=== PATIENT | male | born 1995 | race Caucasian/White ===

== ENCOUNTER 2017-10-21 06:06 | Emergency (ER) | payer MEDICAID, OTHER ==
[2017-10-21] MEDS ORDERED: MOTRIN PO ONE (07:59)
--- NOTE | 2017-10-21 08:02 | Emergency Department Report ---
Upper Extremity - HPI Chief Complaint: Extremity Injury, Upper Stated Complaint: LT WRIST PAIN Time Seen by Provider: 10/21/17 07:42 Upper Extremity: Left Forearm (pain after injury), Left Wrist (pain after injury ), Left Hand (pain after injury) Mechanism: Hit with Object (hit with a soccer ball) Severity: severe (10/10) Symptoms: Yes Pain with Movement (left wrist), No Deformity, No Limited Range of Movement (normal range of motion but pain with movement of left wrist), No Numbness, No Weakness, No Swelling, No Bruising/Ecchymosis, No Laceration or Abrasion Other History: This is a 21-year-old male who reports 4 days ago he was playing soccer and he injured his left hand wrist and forearm because soccer ball hit him. He said that he is impetiginized on it but is just still painful when he moves his left wrist. Denies any fever or chills. Denies swelling or redness. Denies any numbness or tingling. Pain is worse with movement and better with rest. ED Review of Systems ROS: Stated complaint: LT WRIST PAIN Other details as noted in HPI Constitutional: denies: chills, fever Eyes: denies: eye pain, eye discharge, vision change Respiratory: denies: cough, shortness of breath, wheezing Cardiovascular: denies: chest pain, palpitations, edema, syncope Gastrointestinal: denies: nausea, vomiting Musculoskeletal: arthralgia. denies: back pain, joint swelling, myalgia Skin: denies: rash, lesions Neurological: denies: headache, weakness, numbness, paresthesias, abnormal gait , vertigo ED Past Medical Hx - Past Medical History Previous Medical History?: No - Surgical History Past Surgical History?: No - Family History Family history: hypertension - Social History Smoking Status: Current Every Day Smoker Substance Use Type: None - Medications Home Medications: Home Medications Medication Instructions Recorded Confirmed Last Taken Type Acetaminophen/Codeine [Tylenol #3] 1 tab PO Q6H PRN #15 tab 05/01/13 Unknown Rx Ibuprofen [Motrin] 600 mg PO Q8H PRN #15 tablet 10/21/17 Unknown Rx Upper Extremity Exam - Exam General: Vital signs noted. No distress. Alert and acting appropriately. This is a 21-year-old male well-nourished well-developed in no acute distress. Head and Torso: No HEENT Abnormality, No Neck Tenderness, No Chest/Lungs Abnormality, No Abdominal Tenderness, No Back Tenderness Shoulder Exam: No Shoulder Tenderness, No Clavicle Tenderness, No Shoulder Deformity, No AC Joint Tenderness Arm Exam: No Arm/Humerus Tenderness, No Arm Deformity Elbow: No Elbow Tenderness, No Normal Range of Motion in Elbow, No Elbow Deformity Forearm: No Forearm Tenderness, No Forearm Deformity, No Pain with Pronation, No Pain with Supination Wrist: Yes Wrist Tenderness (mild tenderness to the left wrist), Yes Normal ROM in Wrist (pain movement of the left wrist), No Wrist Deformity, No Snuffbox Tenderness, No Pain with Axial Thumb Compression Hand: Yes Normal ROM in Digit(s) (full range of motion.), No Hand Tenderness, No Hand Deformity, No Digit Tenderness, No Digit(s) Deformity, No Tendon Dysfunction CMS Exam: Yes Normal Distal Pulses, Yes Normal Capillary Refill, Yes Normal Distal Sensation (`), No Broken Skin ED Course Vital Signs 10/21/17 06:29 Temperature 97.7 F Pulse Rate 51 L Respiratory 14 Rate Blood Pressure 108/58 O2 Sat by Pulse 100 Oximetry - Reevaluation(s) Reevaluation #1: 10/21/17 08:49 Patient given Motrin 800 mg in emergency room for left wrist pain. Reevaluation #2: 10/21/17 09:04 Patient reports pain is better - Orthopedic Splinting/Casting Injury #1 Side: left Upper Extremity Injury Location: wrist Upper Extremity Immobilizer: wrist splint Additional Comments: Patient with good color, sensation, movement and temperature 2 fingers of left hand after placement of splint. +2 pulses and then ulnar and radial plate. ED Medical Decision Making - Radiology Data Radiology results: report reviewed X-ray of left wrist reveals normal findings X-ray of left hand reveals normal findings X-ray of left forearm reveals normal findings. Findings [facility] [address] [place] [address] Ordering Physician: DELFINO BORREGO MD Date of Service: 10/21/17 Procedure(s): XR hand 2V LT Accession Number(s): [id number] cc: DELFINO BORREGO MD Fluoro Time In Minutes: FINAL REPORT EXAM: XR HAND 2V LT HISTORY: left thumb pain TECHNIQUE: AP and lateral views of the left hand were obtained. FINDINGS: There are no skeletal or soft tissue abnormalities. IMPRESSION: Within normal limits. Transcribed By: RB Dictated By: ABBI RODRIGUEZ MD Electronically Authenticated By: ABBI RODRIGUEZ MD Signed Date/Time: 10/21/17705 Findings [facility] [address] [place] [address] XRay Report Signed Patient: HELIO MCELROY MR#: [id number] : 1995 Acct:[id number] Age/Sex: 21 / M ADM Date: 10/21/17 Loc: ED Attending Dr: Ordering Physician: DELFINO BORREGO MD Date of Service: 10/21/17 Procedure(s): XR forearm 1V LT Accession Number(s): [id number] cc: DELFINO BORREGO MD Fluoro Time In Minutes: FINAL REPORT EXAM: XR FOREARM 1V LT HISTORY: Left forearm pain TECHNIQUE: A single AP view of the left forearm was submitted FINDINGS: There are no skeletal or soft tissue abnormalities. IMPRESSION: Within normal limits. Transcribed By: RB Dictated By: ABBI RODRIGUEZ MD Electronically Authenticated By: ABBI RODRIGUEZ MD Signed Date/Time: 10/21/17705 DD/ 5 TD/TT: 10/21/17705 - Medical Decision Making ED course: Patient here for left hand, wrist and forearm pain 4 days of pain soccer. He said he has been icing it and he is here to be seen and evaluated. Patient seen and evaluated by myself and found to have left wrist sprain. X- ray of left wrist, forearm and hand reveal no acute fracture or dislocation. He was given Motrin 800 mg emergency room which helped his pain. I educated him on x-ray results of the voiced understanding of results. A/P 1: Left wrist sprain-left wrist Velcro splint placed., Rice therapy explained, patient and given 2: Left wrist pain-Motrin 800 mg emergency room which helped his pain better and we'll discharge home and Motrin X-ray of left wrist, forearm and hand reveal no acute findings. Patient given prescription for Motrin upon discharge and he was placed in left wrist splint. See procedure note for details Educated on splint, Rice therapy, medication and diagnosis and he voiced understanding. Pt discharged home in stable condition to follow up with orthopedic doctor if he continues to have pain. Vital signs are stable afebrile and he voiced understanding the discharge instructions - Differential Diagnosis fractured wrist, wrist sprain, wrist strain, musculoskeletal pain Critical care attestation.: If time is entered above; I have spent that time in minutes in the direct care of this critically ill patient, excluding procedure time. ED Disposition Clinical Impression: Left wrist pain Left wrist sprain Qualifiers: Encounter type: initial encounter Qualified Code(s): S63.502A - Unspecified sprain of left wrist, initial encounter Disposition: TO HOME OR SELFCARE Is pt being admited?: No Does the pt Need Aspirin: No Condition: Stable Instructions: Arthralgia (ED), Wrist Injury (ED), Wrist Sprain (ED), RICE Therapy (ED) Additional Instructions: Please see discharge instruction in Rice therapy Take Motrin as prescribed [facility] orthopedic doctor if she still continued pain over the next 3 days. Prescriptions: Ibuprofen [Motrin] 600 mg PO Q8H PRN #15 tablet PRN Reason: Pain Referrals: PRIMARY MD IAN [Primary Care Provider] - 10/24/17 ABBI FALK MD [Staff Physician] - 10/24/17 Forms: Work/School Release Form(ED)
--- NOTE | 2017-10-21 08:53 | XRay Report ---
FINAL REPORT EXAM: XR HAND 2V LT HISTORY: left thumb pain TECHNIQUE: AP and lateral views of the left hand were obtained. FINDINGS: There are no skeletal or soft tissue abnormalities. IMPRESSION: Within normal limits.
--- NOTE | 2017-10-21 08:53 | XRay Report ---
FINAL REPORT EXAM: XR WRIST 2V LT HISTORY: Left wrist pain TECHNIQUE: AP and lateral views of the left wrist were submitted. FINDINGS: There is no evidence of fracture or arthritic changes. The radiocarpal alignment appears normal. The soft tissues are well maintained. IMPRESSION: Within normal limits. If there is a history of recent trauma and persistent pain, repeat imaging is recommended in 7-10 days to evaluate for occult fracture.
--- NOTE | 2017-10-21 08:53 | XRay Report ---
FINAL REPORT EXAM: XR FOREARM 1V LT HISTORY: Left forearm pain TECHNIQUE: A single AP view of the left forearm was submitted FINDINGS: There are no skeletal or soft tissue abnormalities. IMPRESSION: Within normal limits.
[2017-10-21 09:36] VITALS: BP 116/60
== END 2017-10-21 09:46 | disposition home or self-care (01) ==
LOC: ED 06:06
DX: S63.502A Unspecified sprain of left wrist, initial encounter (principal); M79.632 Pain in left forearm; F17.200 Nicotine dependence, unspecified, uncomplicated; W21.02XA Struck by soccer ball, initial encounter; Y93.66 Activity, soccer; Y99.8 Other external cause status; Y92.89 Other specified places as the place of occurrence of the external cause

== ENCOUNTER 2017-12-13 02:40 | Emergency (ER) | payer OTHER ==
[2017-12-13] MEDS ORDERED: MOTRIN ONE ×2 (03:54→08:19)
--- NOTE | 2017-12-13 05:03 | XRay Report ---
FINAL REPORT PROCEDURE: XR WRIST 2V LT TECHNIQUE: LEFT wrist radiographs, including AP, lateral, and oblique views. CPT 30120 HISTORY: left wrist pain COMPARISON: No prior studies are available for comparison. FINDINGS: Fracture (s) and/or Dislocation(s): There is a fracture of the proximal portion of the scaphoid bone.. Alignment: Normal . Joint space(s): Normal . Soft tissues: Normal . Bone mineralization: Normal . Foreign bodies: None . IMPRESSION: Fracture of the scaphoid carpal bone. There is no joint dislocation..
--- NOTE | 2017-12-13 05:06 | XRay Report ---
FINAL REPORT PROCEDURE: XR KNEE 3V LT TECHNIQUE: LEFT knee radiographs, AP, lateral and sunrise views. CPT 47526 HISTORY: Left knee pain COMPARISON: No prior studies are available for comparison. FINDINGS: Fracture (s) and/or Dislocation(s): None . Alignment: Normal . Joint space(s): Normal . Soft tissues: Normal . Bone mineralization: Normal . Foreign bodies: None . IMPRESSION: Normal Examination.
[2017-12-13] MEDS ORDERED: MOTRIN PO ONE ×2 (06:01→08:30)
--- NOTE | 2017-12-13 08:24 | Emergency Department Report ---
ED Lower Extremity HPI - General Chief Complaint: Extremity Injury, Upper Stated Complaint: ARM PAIN, KNEE Time Seen by Provider: 12/13/17 08:08 Source: patient Mode of arrival: Ambulatory Limitations: No Limitations - History of Present Illness Initial Comments: This is a 22-year-old male nontoxic, well nourished in appearance, no acute signs of distress presents to the ED with c/o of left knee pain 1 day and right wrist pain x1 month. Patient stated that he has been walking a lot yesterday and developed knee pain. Patient denies any trauma. Patient stated he had a baseball injury to his left wrist area last month and came to the ER and was diagnosed with a wrist sprain and had a negative x-ray results of any fractures. Patient stated that he does follow-up with the orthopedic doctor for pain. Patient stated that pain has never resolved. Patient denies any numbness, tingling, fever, chills, nausea, vomiting, chest pain, shortness of breath, headache, stiff neck. Patient denies any joint swelling or joint redness. Patient denies decreased range of motion. Patient stated has decreased gait due to pain. Patient denies any allergies or significant past medical history. MD Complaint: knee injury, other (left wrist pain) -: days(s) Injury: Knee: Left Place: street/outdoors Severity: mild Severity scale (0 -10): 8 Improves With: immobilization Worsens With: weight bearing, movement Associated Symptoms: able to partially bear weight, ambulatory. denies: snap/ pop sensation, swelling, numbness, tingling, unable to bear weight - Related Data Previous Rx's Medication Instructions Recorded Last Taken Type Acetaminophen/Codeine [Tylenol #3] 1 tab PO Q6H PRN #15 tab 05/01/13 Unknown Rx Ibuprofen [Motrin] 600 mg PO Q8H PRN #15 tablet 10/21/17 Unknown Rx Acetaminophen/Codeine [Tylenol 1 tab PO Q6H PRN #12 tab 12/13/17 Unknown Rx /Codeine # 3 tab] Ibuprofen [Motrin] 600 mg PO Q8H PRN #30 tablet 12/13/17 Unknown Rx Allergies Allergy/AdvReac Type Severity Reaction Status Date / Time No Known Allergies Allergy Unverified 05/01/13 12:44 ED Review of Systems ROS: Stated complaint: ARM PAIN, KNEE Other details as noted in HPI Constitutional: denies: chills, fever Eyes: denies: eye pain, eye discharge, vision change ENT: denies: ear pain, throat pain Respiratory: denies: cough, shortness of breath, wheezing Cardiovascular: denies: chest pain, palpitations Endocrine: no symptoms reported Gastrointestinal: denies: abdominal pain, nausea, diarrhea Genitourinary: denies: urgency, dysuria Musculoskeletal: denies: back pain, joint swelling, arthralgia Skin: denies: rash, lesions Neurological: denies: headache, weakness, paresthesias Psychiatric: denies: anxiety, depression Hematological/Lymphatic: denies: easy bleeding, easy bruising ED Past Medical Hx - Past Medical History Previous Medical History?: No - Surgical History Past Surgical History?: No - Social History Smoking Status: Current Every Day Smoker Substance Use Type: None - Medications Home Medications: Home Medications Medication Instructions Recorded Confirmed Last Taken Type Acetaminophen/Codeine [Tylenol #3] 1 tab PO Q6H PRN #15 tab 05/01/13 Unknown Rx Ibuprofen [Motrin] 600 mg PO Q8H PRN #15 tablet 10/21/17 Unknown Rx Acetaminophen/Codeine [Tylenol 1 tab PO Q6H PRN #12 tab 12/13/17 Unknown Rx /Codeine # 3 tab] Ibuprofen [Motrin] 600 mg PO Q8H PRN #30 tablet 12/13/17 Unknown Rx ED Physical Exam - General Limitations: No Limitations General appearance: alert, in no apparent distress - Head Head exam: Present: atraumatic, normocephalic - Eye Eye exam: Present: normal appearance - ENT ENT exam: Present: mucous membranes moist - Neck Neck exam: Present: normal inspection - Respiratory Respiratory exam: Present: normal lung sounds bilaterally. Absent: respiratory distress - Cardiovascular Cardiovascular Exam: Present: regular rate, normal rhythm. Absent: systolic murmur, diastolic murmur, rubs, gallop - GI/Abdominal GI/Abdominal exam: Present: soft, normal bowel sounds - Rectal Rectal exam: Present: deferred - Extremities Exam Extremities exam: Present: normal inspection, full ROM, tenderness, normal capillary refill. Absent: joint swelling - Expanded Upper Extremity Exam Left Elbow exam: Present: normal inspection, full ROM. Absent: tenderness, swelling Forearm Wrist exam: Present: normal inspection, full ROM. Absent: tenderness, swelling, abrasion, laceration, ecchymosis, deformity, crepidus, dislocation, erythema, tenderness over anatomical snuff box, pain with axial thumb loading Hand Wrist exam: Present: normal inspection, full ROM, tenderness. Absent: swelling, abrasion, laceration, ecchymosis, deformity, crepidus, dislocation, erythema, amputation, nail avulsion, subungual hematoma Hand L/R Back: 1 - pain here Neuro motor exam: Present: wrist extension intact, thumb opposition intact, thumb IP flexion intact, thumb adduction intact, fingers 2-5 abduction intact Neurosensory exam: Present: 2-point discrimination, radial nerve intact, ulnar nerve intact, median nerve intact Vascular: Present: vascular compromise, normal capillary refill, radial pulse, brachial pulse, ulnar pulse - Expanded Lower Extremity Exam Left Upper Leg exam: Present: normal inspection, full ROM. Absent: tenderness, swelling Knee exam: Present: normal inspection, full ROM, tenderness, full knee extension. Absent: swelling, abrasion, laceration, ecchymosis, deformity, crepidus, dislocation, erythema, effusion, pain w/ pronation/supination, posterior draw sign, pain/laxity with valgus, pain/laxity with varus Lower Leg exam: Present: normal inspection, full ROM. Absent: tenderness, swelling, abrasion, laceration, ecchymosis, deformity, crepidus, dislocation, erythema, palpable cord, Williams's sign Ankle exam: Present: normal inspection, full ROM. Absent: tenderness, swelling Foot/Toe exam: Present: normal inspection, full ROM. Absent: tenderness, swelling Neuro vascular tendon exam: Present: no vascular compromise. Absent: pulse deficit, abnormal cap refill, motor deficit, sensory deficit, tendon deficit, extremity cold to touch, pallor, abnormal 2-point discrimination, decreased fine /light touch, foot drop, peroneal nerve deficit, significant pain with passive ROM of distal joint Gait: Positive: observed and limited by pain - Back Exam Back exam: Present: normal inspection, full ROM - Neurological Exam Neurological exam: Present: alert, oriented X3 - Psychiatric Psychiatric exam: Present: normal affect, normal mood - Skin Skin exam: Present: warm, dry, intact, normal color. Absent: rash ED Course Vital Signs 12/13/17 03:21 Temperature 98.1 F Pulse Rate 50 L Respiratory 16 Rate Blood Pressure 110/61 O2 Sat by Pulse 99 Oximetry - Reevaluation(s) Reevaluation #1: 12/13/17 08:45 Patient is speaking in full sentences with no signs of distress noted. Reevaluation #2: 12/13/17 08:45 Post splint assessment: neurovasular intact; normal cap refill <2 second; normal sensation; denies decreaed sensation; normal ROM of digits. ED Lower Extremity MDM - Medical Decision Making This is a 22-year-old male that presents with left knee strain and left scaphoid bone fracture. Patient is stable and was examined by me. I referred patient to an orthopedic doctor for further evaluation for possible MRI. X-ray has been obtained and dictated by the radiologist. Patient is notified of the x -ray report with noted by the patient. Patient does have normal gait with no tenderness and no joint swelling. No ecchymosis. no joint redness or swelling. Not warm to touch. No signs of cellulites present. Patient received a knee Casa wrap and left thumb spica Velcro splint. Post splint assessment: neurovasular intact; normal cap refill <2 second; normal sensation; denies decreaed sensation ; normal ROM of digits. Patient was instructed to RICE therapy. Patient received Motrin for pain. Patient is discharged with Motrin. At time of discharge, the patient does not seem toxic or ill in appearance. No acute signs of distress noted. Patient agrees to discharge treatment plan of care. No further questions noted by the patient. Critical care attestation.: If time is entered above; I have spent that time in minutes in the direct care of this critically ill patient, excluding procedure time. ED Disposition Clinical Impression: Strain of left knee Qualifiers: Encounter type: initial encounter Qualified Code(s): S86.912A - Strain of unspecified muscle(s) and tendon(s) at lower leg level, left leg, initial encounter Left wrist fracture Qualifiers: Encounter type: initial encounter Fracture type: closed Qualified Code(s): S62.102A - Fracture of unspecified carpal bone, left wrist, initial encounter for closed fracture Disposition: DC-01 TO HOME OR SELFCARE Is pt being admited?: No Does the pt Need Aspirin: No Condition: Stable Instructions: Knee Pain (ED), RICE Therapy (ED), Wrist Fracture in Adults (ED) , Ibuprofen (By mouth), Acetaminophen/Codeine (By mouth) Additional Instructions: Follow-up with a orthopedic doctor in 3-5 days or if symptoms worsen and continue return to emergency room as soon as possible. Do not operate any machinery while taking Tylenol with codeine as this may cause drowsiness. Prescriptions: Acetaminophen/Codeine [Tylenol /Codeine # 3 tab] 1 tab PO Q6H PRN #12 tab PRN Reason: Pain , Severe (7-10) Ibuprofen [Motrin] 600 mg PO Q8H PRN #30 tablet PRN Reason: Pain Referrals: PRIMARY CAREMD [Primary Care Provider] - 3-5 Days ABBI FALK MD [Staff Physician] - 3-5 Days HARMAN SMITH MD [Staff Physician] - 3-5 Days [facility] [Outside] - 3-5 Days Forms: Work/School Release Form(ED)
[2017-12-13 09:01] VITALS: BP 118/70
== END 2017-12-13 08:59 | disposition home or self-care (01) ==
LOC: ED 02:40
DX: S62.102A Fracture of unspecified carpal bone, left wrist, initial encounter for closed fracture (principal); S86.912A Strain of unspecified muscle(s) and tendon(s) at lower leg level, left leg, initial encounter; F17.200 Nicotine dependence, unspecified, uncomplicated; W21.03XA Struck by baseball, initial encounter; Y93.64 Activity, baseball; Y92.39 Other specified sports and athletic area as the place of occurrence of the external cause; Y99.8 Other external cause status

== ENCOUNTER 2018-08-29 08:47 | Emergency (ER) | payer SELFPAY ==
--- NOTE | 2018-08-29 09:33 | Emergency Department Report ---
Vomiting/Diarrhea - HPI Chief Complaint: Nausea/Vomiting/Diarrhea Stated Complaint: VOMITING/BODY PAIN/CHEST PAIN Time Seen by Provider: 08/29/18 09:24 Duration: 2 weeks Severity: mild Nausea/Vomiting Severity: Mild Diarrhea Severity: None Pain Severity: None Symptoms: Yes Able to Tolerate Fluids, No Watery Diarrhea, No Bloody diarrhea, No Fever, No Recent Unusual Foods, No Recent Untreated Water, No Recent use of Antibiotics, No Family w/ Similar Symptoms, No Contacts w/ Similar Symptoms, No Rash, No Hematuria, No Recent URI Symptoms Other History: This is a 22-year-old male who presents to ED complaining of nausea and vomiting that happens every morning for the past 2 weeks or more. Patient states that it usually occurs every morning. Patient states after he throws up than he feels a little better. Patient states that he is able to eat normally throughout the day and drink fluids. He denies diarrhea Patient states that he has no fever, abdominal pain, dizziness, ED Review of Systems ROS: Stated complaint: VOMITING/BODY PAIN/CHEST PAIN Other details as noted in HPI Comment: All other systems reviewed and negative ED Past Medical Hx - Past Medical History Previous Medical History?: No - Surgical History Past Surgical History?: No - Social History Smoking Status: Current Every Day Smoker Substance Use Type: None - Medications Home Medications: Home Medications Medication Instructions Recorded Confirmed Last Taken Type Acetaminophen/Codeine [Tylenol #3] 1 tab PO Q6H PRN #15 tab 05/01/13 Unknown Rx Ibuprofen [Motrin] 600 mg PO Q8H PRN #15 tablet 10/21/17 Unknown Rx Acetaminophen/Codeine [Tylenol 1 tab PO Q6H PRN #12 tab 12/13/17 Unknown Rx /Codeine # 3 tab] Ibuprofen [Motrin] 600 mg PO Q8H PRN #30 tablet 12/13/17 Unknown Rx Ondansetron [Zofran ODT TAB] 8 mg PO Q12HR #20 tab.rapdis 08/29/18 Unknown Rx Vomiting Diarrhea Exam - Exam General: Vital signs noted. No distress. Alert and acting appropriately. HEENT: Yes Moist Mucous Membranes, No Pharyngeal Erythema, No Pharyngeal Exudates, No Rhinorrhea, No Conjuctival Injection, No Frontal Tenderness, No Maxillary Tenderness Neck: No Adenopathy, No Rigidity Lungs: Yes Clear Lung Sounds, Yes Good Air Exchange, No Wheezes, No Stridor, No Cough, No Nasal Flaring, No Retractions, No Use of Accessory Muscles Heart exam: Regular: Yes, Murmur: No, Tachycardia: No Abdomen: Tenderness: No (no tenderness on all quadrant), Peritoneal Signs: No, Distention: No, Hyperactive Bowel sounds: No Skin exam: Rash: No, Edema: No, Normal turgor: Yes Neurologic: Alert and oriented, no deficits. Musculoskeletal: Unremarkable. ED Course Vital Signs 08/29/18 08:49 Temperature 97.9 F Pulse Rate 70 Respiratory 18 Rate Blood Pressure 130/76 O2 Sat by Pulse 100 Oximetry ED Medical Decision Making - Lab Data Result diagrams: 08/29/18 09:34 08/29/18 09:34 - Radiology Data Radiology results: report reviewed, image reviewed ULTRASOUND ABDOMEN COMPLETE: TECHNIQUE: Transabdominal ultrasound with color Doppler interrogation. HISTORY: Nausea and vomiting. COMPARISON: none. FINDINGS: LIVER: Normal. BILIARY SYSTEM: Normal. PANCREAS: Normal. SPLEEN: Normal. KIDNEYS: Normal. AORTA/IVC: Normal. ASCITES: None. IMPRESSION: Unremarkable exam. No abnormality is identified. Transcribed By: TTR Dictated By: OMER MARIN JR, MD Electronically Authenticated By: OMER MARIN JR, MD Signed Date/Time: 08/29/18 1238 - Medical Decision Making 22-year-old male presents with a chronic nausea vomiting definitely happens in the mornings. All labs within normal limits. No elevated white count, The ultrasound ordered, ultrasound shows no acute findings. Discussed findings with the patient. Discussed patient continue to follow-up with chemistry account manager. Patient is in no acute distress, he specifically sentences. He understands all instructions given and findings. Vital signs are normal patient is in no acute distress. There was any lower abdominal pain or tenderness upon examination. Discussed with the patient understood. Transient nausea resolved on its own or be something else this can be evaluated by primary care physician or chemistry account manager. Critical care attestation.: If time is entered above; I have spent that time in minutes in the direct care of this critically ill patient, excluding procedure time. ED Disposition Clinical Impression: Nausea & vomiting Disposition: [id number] TO HOME OR SELFCARE Is pt being admited?: No Does the pt Need Aspirin: No Condition: Stable Instructions: Biliary Colic (ED), Acute Nausea and Vomiting (ED) Additional Instructions: Make sure to follow up with the primary care physician as discussed. If symptoms continue follow-up with chemistry account manager. Take all your medications as you've been prescribed. If you have any worsening symptoms or develop new symptoms please return to ED immediately. Prescriptions: Ondansetron [Zofran ODT TAB] 8 mg PO Q12HR #20 tab.rapdis Referrals: MICHELL RG MD [Primary Care Provider] - 3-5 Days [facility] [Provider Group] - 3-5 Days [facility] [Provider Group] - 3-5 Days Forms: Accompanied Note, Work/School Release Form(ED) Time of Disposition: 13:17
[2018-08-29 09:51] LABS: Basophils # (Auto) 0.1 K/mm3 (0.0-0.1); Basophils % (Auto) 0.6 % (0.0-1.8); Eosinophils # (Auto) 0.5 K/mm3 (0.0-0.4); Eosinophils % (Auto) 5.7 % (0.0-4.3); Hematocrit 39.6 % (35.5-45.6); Hemoglobin 13.5 gm/dl (11.8-15.2); Lymphocytes # (Auto) 2.3 K/mm3 (1.2-5.4); Lymphocytes % (Auto) 26.4 % (13.4-35.0); Mean Corpuscular HGB Conc 34 % (32-34); Mean Corpuscular Volume 90 fl (84-94); Monocytes # (Auto) 0.7 K/mm3 (0.0-0.8); Monocytes % (Auto) 7.9 % (0.0-7.3); Platelet Count 282 K/mm3 (140-440); Red Blood Count 4.41 M/mm3 (3.65-5.03); Red Cell Distribution Width 13.8 % (13.2-15.2)
[2018-08-29] MEDS ORDERED: ZOFRAN ODT ONE (09:56)
[2018-08-29 10:07] LABS: Bilirubin,Urine NEG (Negative); Blood,Urine NEG (Negative); Color,Urine Yellow (Yellow); Mucus,Urine FEW /HPF; Protein,Urine <15 mg/dL mg/dL (Negative); Urobilinogen,Urine < 2.0 mg/dL (<2.0)
[2018-08-29 10:12] LABS: Alanine Aminotransferase 16 units/L (7-56); BUN/Creatinine Ratio 14; Blood Urea Nitrogen 13 mg/dL (9-20); Calcium 8.8 mg/dL (8.4-10.2); Hemolysis Index 15
[2018-08-29] MEDS ORDERED: ZOFRAN ODT PO ONE (10:19)
--- NOTE | 2018-08-29 12:59 | Ultrasound Report ---
ULTRASOUND ABDOMEN COMPLETE: TECHNIQUE: Transabdominal ultrasound with color Doppler interrogation. HISTORY: Nausea and vomiting. COMPARISON: none. FINDINGS: LIVER: Normal. BILIARY SYSTEM: Normal. PANCREAS: Normal. SPLEEN: Normal. KIDNEYS: Normal. AORTA/IVC: Normal. ASCITES: None. IMPRESSION: Unremarkable exam. No abnormality is identified.
[2018-08-29 20:33] VITALS: BP 107/53
== END 2018-08-29 13:29 | disposition home or self-care (01) ==
LOC: ED 08:47
DX: R11.2 Nausea with vomiting, unspecified (principal); F17.200 Nicotine dependence, unspecified, uncomplicated; Z88.8 Allergy status to other drugs, medicaments and biological substances
CPT/HCPCS: 36415; 76700; 80053; 81001; 83690; 85025; 93005; 93010; 99284; Q0162